=== PATIENT | male | born 1960 | race Caucasian/White ===

== ENCOUNTER 2021-12-26 12:16 | Emergency (ER) | payer BC ==
[2021-12-26] MEDS ORDERED: Ondansetron 4 MG/2 ML SDV IVPUSH ONE (12:59)
[2021-12-26] MEDS ORDERED: Sodium Chloride 0.9% 10 ML Syringe FLUSH PRN (12:59)
[2021-12-26] MEDS ORDERED: Ketorolac 30 MG/ML SDV IVPUSH ONE (13:00)
[2021-12-26] MEDS: Sodium Chloride 0.9% 1,000 ML IV SCH ×2 (13:31→14:43)
[2021-12-26] MEDS ORDERED: Tamsulosin 0.4 MG Cap.ER PO ONE (14:24)
[2021-12-26] MEDS ORDERED: HYDROmorphone 0.5 MG/0.5 ML Syringe IVPUSH ONE (14:24)
[2021-12-26] MEDS ORDERED: Sodium Chloride 0.9% 1,000 ML IV ONE (15:56)
== END 2021-12-26 16:16 | disposition home or self-care (01) ==
LOC: JD.ED 12:16
DX: N13.2 Hydronephrosis with renal and ureteral calculous obstruction (principal)
CPT/HCPCS: 36415; 74176; 80053; 81001; 85025; 96361; 96374; 96375; 99284; A9270; J1170; J1885; J2405; J3490; J7030